=== PATIENT | female | born 2000 | race Caucasian/White ===

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

== ENCOUNTER 2024-01-14 13:20 | Outpatient (CLI) | payer OTHER | END 2024-01-14 13:31 | disposition home or self-care (01) | LOC: SONOGRAMA 13:20 | DX: N94.6 Dysmenorrhea, unspecified (principal); N83.00 Follicular cyst of ovary, unspecified side; N92.5 Other specified irregular menstruation ==